=== PATIENT | female | born 2000 | race Caucasian/White ===

== ENCOUNTER 2020-09-09 10:58 | Outpatient (CLI) | payer OTHER, SELFPAY ==
--- NOTE | 2020-09-14 16:21 | WPDHOLTEREM ---
Holter/Event Monitor Holter/Event Monitor Date of procedure: 09/09/20 Procedure Type: 48 hour holter monitor Indications: Palpitations Conclusion: 1. 48 hour holter monitor on 09/09/20. 2. Underlying rhythm is sinus rhythm. HR range 45-171 bpm; average HR 91 bpm. 3. There is 1 premature supraventricular complex. No supraventricular tachycardia. 4. No premature ventricular complex. No ventricular tachycardia. 5. No sinoatrial or atrioventricular blocks. No significant pauses greater than 2 seconds. 6. Patient reports symptoms of lightheadedness, pounding heart beats, shortness of breath, palpitations, nausea which demonstrate sinus rhythm, HR range 86-124 bpm.
== END 2020-09-09 10:59 | disposition home or self-care (01) ==
PROVIDERS: PCP Nurse Practitioner Adult Health; Visit Provider Nurse Practitioner Adult Health
DX: R00.2 Palpitations (principal)
CPT/HCPCS: 93225; 93226